=== PATIENT | female | born 1960 | race Caucasian/White ===

== ENCOUNTER 2018-05-16 05:29 | Emergency (ER) | payer SELFPAY ==
[2018-05-16] MEDS ORDERED: ADENOSINE INJ/PF 6 MG/2 ML SDV IV ONE ×3 (05:46→06:01)
[2018-05-16] MEDS ORDERED: METOPROLOL TARTRATE PF/INJ 5 MG/5 ML SDV IV ONE ×2 (05:56→06:00)
[2018-05-16] MEDS ORDERED: NORMAL SALINE 500 ML IV ONE (06:01)
[2018-05-16 06:07] LABS: ABSOLUTE EOSINOPHILS # (AUTO) 0.3 10^3/uL (0.0-0.6); ABSOLUTE MONOCYTES (AUTO) 0.7 10^3/uL (0.1-1.4); ABSOLUTE NEUT (AUTO) 5.4 10^3/uL (1.7-8.2); BASOPHILS % (AUTO) 0.2 % (0-2); EOSINOPHILS % (AUTO) 2.7 % (0-6); HEMATOCRIT 47.5 % (36.0-47.0); HEMOGLOBIN 16.1 g/dL (12.0-15.5); LYMPHOCYTES % (AUTO) 38.1 % (13-45); MEAN CORPUSCULAR HEMOGLOBIN 29.7 pg (27.0-33.4); MEAN CORPUSCULAR VOLUME 88 fl (80-97); MONOCYTES % (AUTO) 7.2 % (3-13); PLATELET COUNT 338 10^3/uL (150-450); RED BLOOD COUNT 5.43 10^6/uL (3.72-5.28); RED CELL DISTRIBUTION WIDTH 13.4 % (11.5-14.0); SEGMENTED NEUTROPHILS % (AUTO) 51.8 % (42-78); TOTAL CELLS COUNTED % (AUTO) 100 %; WHITE BLOOD COUNT 10.4 10^3/uL (4.0-10.5)
[2018-05-16] MEDS ORDERED: NITROGLYCERIN/D5W 50 MG/250 ML RTUINJ IV ONE (06:17)
[2018-05-16 06:21] LABS: ALANINE AMINOTRANSFERASE 32 U/L (9-52); ALBUMIN 4.7 g/dL (3.5-5.0); ALKALINE PHOSPHATASE 148 U/L (38-126); ANION GAP 16 (5-19); ASPARTATE AMINO TRANSFERASE 41 U/L (14-36); BILIRUBIN,DIRECT 0.3 mg/dL (0.0-0.4); BILIRUBIN,TOTAL 0.6 mg/dL (0.2-1.3); BLOOD UREA NITROGEN 21 mg/dL (7-20); CALCIUM 9.9 mg/dL (8.4-10.2); CARBON DIOXIDE 20 mmol/L (22-30); CHLORIDE 103 mmol/L (98-107); GLUCOSE 342 mg/dL (75-110); POTASSIUM 4.1 mmol/L (3.6-5.0); SODIUM 139.3 mmol/L (137-145); TOTAL PROTEIN 8.5 g/dL (6.3-8.2)
--- NOTE | 2018-05-16 06:28 | ER Document Report ---
Doctor's Note Notes: 05/16/18 06:12 Performed a
[2018-05-16] MEDS ORDERED: INSULIN REG, HUMAN 100 UNIT/ML 3 ML VIAL (PYX) SUBCUT ONE (06:31)
--- NOTE | 2018-05-16 06:50 | RADIOLOGY REPORT (SQ) ---
EXAM DESCRIPTION: CT ABDOMEN PELVIS WITHOUT THEN WITH IV CONTRAST, CT CHEST ANGIOGRAPHY WITHOUT THEN WITH IV CONTRAST COMPLETED DATE/TME: 05/16/2018 00:00 (accession [id number]), 05/16/2018 06:00 (accession [id number]) CLINICAL HISTORY: 57 years, Female, chest pain. rule out aortic disection COMPARISON: None. TECHNIQUE: Axial CT images of the chest, and pelvis were obtained after the administration of IV contrast. MPR and MIP. DLP 2565. Images stored on PACS. All CT scanners at this facility use dose modulation, iterative reconstruction, and/or weight based dosing when appropriate to reduce radiation dose to as low as reasonably achievable (ALARA). [facility]: Dose Right [facility]: CareDose [facility]: Dose Right [facility]: Teradose 4D [facility]: MindMixer LIMITATIONS: None. FINDINGS: --Chest-- Thoracic aorta: Minimal atherosclerotic calcifications. No evidence of an aneurysm or dissection. Heart: Atherosclerotic calcifications of the coronary arteries Mediastinum: No pathologic sized middle mediastinal lymphadenopathy. Tracheobronchial tree: Unremarkable. Pulmonary arteries: No evidence of a pulmonary embolism. Lungs: Lobar consolidation: There are diffuse and patchy groundglass opacities. Pleural effusion: Negative. Pneumothorax: Negative. Other: Negative. Bones: Unremarkable. --Abdomen-- Solid abdominal viscera: Liver: Unremarkable. Gallbladder: Cholelithiasis Pancreas: Unremarkable. Spleen: Unremarkable. Adrenal glands: Unremarkable. Right kidney: No hydronephrosis. Left kidney: No hydronephrosis. Urinary bladder: Unremarkable. Abdominal aorta: Unremarkable. Peritoneal: Free fluid: None. Free air: None. Other: No pathologic sized lymph nodes in the upper abdomen. Bowel: Stomach: Unremarkable. Small bowel: Unremarkable. Appendix: Unremarkable. Colon: Diverticulosis without evidence of diverticulitis Rectum: Unremarkable. Uterus: Unremarkable. Bones: Unremarkable. IMPRESSION: No evidence of an aortic dissection or aneurysm. Diffuse groundglass opacities, which may be due to a pneumonitis or pneumonia. Cholelithiasis. Diverticulosis without evidence of diverticulitis TECHNICAL DOCUMENTATION: Quality ID # 436: Final reports with documentation of one or more dose reduction techniques (e.g., Automated exposure control, adjustment of the mA and/or kV according to patient size, use of iterative reconstruction technique) copyright 2011 [employer] All Rights Reserved
--- NOTE | 2018-05-16 06:50 | RADIOLOGY REPORT (SQ) ---
EXAM DESCRIPTION: CT ABDOMEN PELVIS WITHOUT THEN WITH IV CONTRAST, CT CHEST ANGIOGRAPHY WITHOUT THEN WITH IV CONTRAST COMPLETED DATE/TME: 05/16/2018 00:00 (accession [id number]), 05/16/2018 06:00 (accession [id number]) CLINICAL HISTORY: 57 years, Female, chest pain. rule out aortic disection COMPARISON: None. TECHNIQUE: Axial CT images of the chest, and pelvis were obtained after the administration of IV contrast. MPR and MIP. DLP 2565. Images stored on PACS. All CT scanners at this facility use dose modulation, iterative reconstruction, and/or weight based dosing when appropriate to reduce radiation dose to as low as reasonably achievable (ALARA). [facility]: Dose Right [facility]: CareDose [facility]: Dose Right [facility]: Teradose 4D [facility]: [employer] LIMITATIONS: None. FINDINGS: --Chest-- Thoracic aorta: Minimal atherosclerotic calcifications. No evidence of an aneurysm or dissection. Heart: Atherosclerotic calcifications of the coronary arteries Mediastinum: No pathologic sized middle mediastinal lymphadenopathy. Tracheobronchial tree: Unremarkable. Pulmonary arteries: No evidence of a pulmonary embolism. Lungs: Lobar consolidation: There are diffuse and patchy groundglass opacities. Pleural effusion: Negative. Pneumothorax: Negative. Other: Negative. Bones: Unremarkable. --Abdomen-- Solid abdominal viscera: Liver: Unremarkable. Gallbladder: Cholelithiasis Pancreas: Unremarkable. Spleen: Unremarkable. Adrenal glands: Unremarkable. Right kidney: No hydronephrosis. Left kidney: No hydronephrosis. Urinary bladder: Unremarkable. Abdominal aorta: Unremarkable. Peritoneal: Free fluid: None. Free air: None. Other: No pathologic sized lymph nodes in the upper abdomen. Bowel: Stomach: Unremarkable. Small bowel: Unremarkable. Appendix: Unremarkable. Colon: Diverticulosis without evidence of diverticulitis Rectum: Unremarkable. Uterus: Unremarkable. Bones: Unremarkable. IMPRESSION: No evidence of an aortic dissection or aneurysm. Diffuse groundglass opacities, which may be due to a pneumonitis or pneumonia. Cholelithiasis. Diverticulosis without evidence of diverticulitis TECHNICAL DOCUMENTATION: Quality ID # 436: Final reports with documentation of one or more dose reduction techniques (e.g., Automated exposure control, adjustment of the mA and/or kV according to patient size, use of iterative reconstruction technique) copyright 2011 [employer]- All Rights Reserved
[2018-05-16] MEDS ORDERED: PANTOPRAZOLE SODIUM 40 MG VIAL IV ONE (06:53)
[2018-05-16] MEDS ORDERED: ASPIRIN 325 MG TABLET PO ONE (07:04)
[2018-05-16] MEDS ORDERED: DILTIAZEM HCL/D5W 125 MG/125 ML RTUINJ IV PRN (07:04)
[2018-05-16] MEDS ORDERED: ASPIRIN 81 MG TABLET, CHEWABLE ONE (07:14)
--- NOTE | 2018-05-16 07:14 | ER Document Report ---
ED General - General Chief Complaint: Chest Pain Stated Complaint: CHEST PAIN Time Seen by Provider: 05/16/18 06:00 Notes: Patient is a 57-year-old female who presents with complaint of severe chest pain that radiates from the chest into her back and upper neck and into her left shoulder and arm. Started around 1:30 AM. She also notes her heart was racing fast. She waited at home but it did not improve and therefore she came to the ER. Upon arrival she is unwell appearing. She is having severe chest pain. She appears a bit short of breath. She says she does have a history of hypertension and diabetes. She says used to be on medications over a year ago however decided to stop taking medications and try to correct her medical pr oblems with diet. She has not seen a doctor in over a year. She denies personal history of coronary disease. There is some family history of coronary disease. No drug use. No alcohol use. No smoking. No other complaints at this time. TRAVEL OUTSIDE OF THE [place] IN LAST 30 DAYS: No - Related Data Allergies/Adverse Reactions: Sulfa (Sulfonamide Antibiotics) Allergy (Verified 05/16/18 05:33) Past Medical History - Social History Smoking Status: Former Smoker Chew tobacco use (# tins/day): No Frequency of alcohol use: None Drug Abuse: None Family History: Reviewed & Not Pertinent Patient has suicidal ideation: No Patient has homicidal ideation: No - Past Medical History Cardiac Medical History: Reports: Hx Hypertension Endocrine Medical History: Reports: Hx Diabetes Mellitus Type 2 Renal/ Medical History: Denies: Hx Peritoneal Dialysis Review of Systems - Review of Systems Notes: My Normal Review Basic REVIEW OF SYSTEMS: CONSTITUTIONAL : Denies fever, chills, or sweats. Denies recent illness. EENT: Denies eye, ear, throat, or mouth pain or symptoms. Denies nasal or sinus congestion. CARDIOVASCULAR: Chest pain RESPIRATORY: Some dyspnea GASTROINTESTINAL: Denies abdominal pain. Denies nausea, vomiting, or diarrhea. Denies constipation. Last BM: MUSCULOSKELETAL: Denies neck or back pain or joint pain or swelling. SKIN: Denies rash or skin lesions. NEUROLOGICAL: Denies altered mental status or loss of consciousness. . ALL OTHER SYSTEMS REVIEWED AND NEGATIVE. Physical Exam - Vital signs Vitals: Resp 16 05/16/18 05:42 - Notes Notes: General Appearance: Well nourished, alert, cooperative, mild acute distress, moderate obvious discomfort. Vitals: reviewed, See vital signs table. Head: no swelling or tenderness to the head Eyes: PERRL, EOMI, Conjuctiva clear Mouth: No decreasd moisture Lungs: No wheezing, No rales, No rhonci, No accessory muscle use, good air exchange bilaterally. Heart: tachyardiac rate, Regular rythm, No murmur, no rub Abdomen: Normal BS, soft, No rigidity, No abdominal tenderness, No guarding, no rebound, no abdominal masses, no organomegaly Extremities: strength 5/5 in all extremities, good pulses in all extremities, no swelling or tenderness in the extremities, no edema. Skin: warm, dry, appropriate color, no rash Neuro: speech clear, oriented x 3, normal affect, responds appropriately to questions. Course - Re-evaluation Re-evalutation: 05/16/18 07:07 The patient arrived she was tachycardic and hypertensive. Systolic blood pressure was over 200. Heart rate was in the 150s to low 160s. She had chest pain rating to her back and into her neck and into her left shoulder. Peripheral pulses were equal but was concerned for possibility of dissection. I cannot tell exactly what rhythm she was in. On the EKG it looks like it probably was sinus tach as there may be some P waves buried within the T waves; however, this was not clear. I therefore gave her round of adenosine which slo wed down her rate enough for me to see that she was indeed in sinus tach. I gave the patient 5 mg Lopressor IV and I then took the patient immediately over to CT scan to rule out dissection. CTA did not show evidence of dissection as I reviewed the images as they were coming across on the monitor. Patient however developed flash pulmonary edema during the CT scan that her chest pain worsened. Immediately brought back to the room and started on high-dose nitro drip at 100 mcgs a minute. This quickly relieved the patient's chest pain and help with her edema. We did have a nonrebreather mask on her until BiPAP to be started. Once BiPAP was placed on her her breathing completely improved. Blood pressure is improved on nitro drip. We are now able to titrate the nitro drip down. She st ill has tachycardia. Her heart rate initially went to the 120s with the Lopressor but it is back into the 140s. I have ordered Cardizem drip as I suspect that she may be having underlying cardiac ischemia or PA as her troponin is elevated. I want to get her heart rate under better control to help reduce the amount of strain this could put on her. We will start a Cardizem drip. I have ordered aspirin. I will call for transfer as I suspect the patient may have a non-STEMI with significant cardiac strain. 05/16/18 07:[address] Keyes, sales service rep at [facility]. He is except the patient for transfer. Will place patient on Lovenox. She is Osmany received aspirin. We will continue the Cardizem drip to try to help control her heart rate. Patient currently is pain-free and says she feels much improved. She says she still has just a slight shortness of breath but it is much improved comparison to earlier. Dictation of this chart was performed using voice recognition software; therefore, there may be some unintended grammatical errors. 05/16/18 07:48 - Vital Signs Vital signs: Temp Pulse Resp BP Pulse Ox 97.9 F 15 132/98 H 97 05/16/18 06:57 05/16/18 06:57 05/16/18 06:57 05/16/18 06:57 - Laboratory Result Diagrams: 05/16/18 05:50 05/16/18 05:50 Laboratory results interpreted by me: 05/16/18 05/16/18 05/16/18 05:43 05:50 05:50 RBC 5.43 H Hgb 16.1 H Hct 47.5 H Carbon Dioxide 20 L BUN 21 H Glucose 342 H POC Glucose 324 H AST 41 H Alkaline Phosphatase 148 H Total Protein 8.5 H Critical Care Note - Critical Care Note Total time excluding time spent on procedures (mins): 45 Comments: Critical care time for the patient including time spent in procedures appro ximately 45 minutes due to evaluations, management of hypertensive emergency, management of severe chest pain with distress, management of an STEMI. Discharge - Discharge Clinical Impression: Tachycardia, Flash pulmonary edema, NSTEMI (non-ST elevated myocardial infarction) Chest pain Qualifiers: Chest pain type: unspecified Qualified Code(s): R07.9 - Chest pain, unspecified Condition: Stable Disposition: [facility]
[2018-05-16] MEDS ORDERED: ASPIRIN 81 MG TABLET, CHEWABLE PO ONE (07:18)
--- NOTE | 2018-05-16 07:20 | RADIOLOGY REPORT (SQ) ---
EXAM DESCRIPTION: XR CHEST 1 VIEW COMPLETED DATE/TME: 05/16/2018 06:47 CLINICAL HISTORY: 57 years Female, dyspnea COMPARISON: 08/06/13 NUMBER OF VIEWS/TECHNIQUE: 1/AP FINDINGS: Adequate lung volume, mixed interstitial and airspace opacity, normal cardiac silhouette, and intact bony thorax. IMPRESSION: Mild mixed interstitial and airpace opacities. Differential diagnosis includes pulmonary edema, multifocal pneumonia, and chronic interstitial lung disease.
[2018-05-16] MEDS ORDERED: ENOXAPARIN SODIUM INJ 120 MG/0.8 ML DISP.SYRIN SUBCUT SCH (08:00)
--- NOTE | 2018-05-16 08:32 | EKG REPORT ---
SEVERITY:- ABNORMAL ECG - SINUS TACHYCARDIA FIRST DEGREE AV BLOCK JOSIE, CONSIDER BIATRIAL ABNORMALITIES CONSIDER ANTEROSEPTAL INFARCT ST DEPRESSION, PROBABLY RATE RELATED PROLONGED QT INTERVAL : Confirmed by: Doe Owen MD 16-May-2018 08:30:55
[2018-05-16 08:43] VITALS: BP 136/76
== END 2018-05-16 09:10 | disposition short-term general hospital (02) ==
LOC: ER 05:29
DX: I21.4 Non-ST elevation (NSTEMI) myocardial infarction (principal); J81.1 Chronic pulmonary edema; R00.0 Tachycardia, unspecified; R07.9 Chest pain, unspecified; M25.512 Pain in left shoulder; M54.9 Dorsalgia, unspecified; M54.2 Cervicalgia; M79.602 Pain in left arm; I10 Essential (primary) hypertension; E11.9 Type 2 diabetes mellitus without complications; Z87.891 Personal history of nicotine dependence
CPT/HCPCS: 93005; 99291; 96372; 96375; 96365; 96366; 96368; 36415; 82962; 83735; 85025; 80053; 84484; 83880; 71045; 71275; 74174; 93010; J1650; J3490 ×3; S0164; J1815; J7040; J0153

== ENCOUNTER 2018-06-08 16:09 | Emergency (ER) | payer SELFPAY ==
[2018-06-08] MEDS ORDERED: FENTANYL CITRATE INJ/PF 100 MCG/2 ML AMPUL ONE (16:17)
[2018-06-08] MEDS ORDERED: PROPOFOL 1,000 MG/100 ML INFUS..BTL IV ONE ×2 (16:17→20:03)
[2018-06-08] MEDS ORDERED: FUROSEMIDE INJ/PF 40 MG/4 ML SDV IV ONE (16:22)
[2018-06-08] MEDS ORDERED: FENTANYL CITRATE INJ/PF 100 MCG/2 ML AMPUL IV ONE (16:22)
[2018-06-08 16:49] LABS: ABSOLUTE BASOPHILS # (AUTO) 0.1 10^3/uL (0.0-0.2); ABSOLUTE EOSINOPHILS # (AUTO) 0.7 10^3/uL (0.0-0.6); ABSOLUTE LYMPHOCYTES (AUTO) 1.6 10^3/uL (0.5-4.7); ABSOLUTE MONOCYTES (AUTO) 0.4 10^3/uL (0.1-1.4); ABSOLUTE NEUT (AUTO) 4.7 10^3/uL (1.7-8.2); BASOPHILS % (AUTO) 0.8 % (0-2); EOSINOPHILS % (AUTO) 9.5 % (0-6); HEMATOCRIT 31.1 % (36.0-47.0); HEMOGLOBIN 9.9 g/dL (12.0-15.5); LYMPHOCYTES % (AUTO) 21.4 % (13-45); MEAN CORPUSCULAR HEMOGLOBIN 28.9 pg (27.0-33.4); MEAN CORPUSCULAR VOLUME 91 fl (80-97); MONOCYTES % (AUTO) 5.2 % (3-13); PLATELET COUNT 533 10^3/uL (150-450); RED BLOOD COUNT 3.44 10^6/uL (3.72-5.28); RED CELL DISTRIBUTION WIDTH 16.1 % (11.5-14.0); SEGMENTED NEUTROPHILS % (AUTO) 63.1 % (42-78); TOTAL CELLS COUNTED % (AUTO) 100 %; WHITE BLOOD COUNT 7.5 10^3/uL (4.0-10.5)
[2018-06-08 16:54] LABS: INTERNATIONAL RATION (INR) 1.09; PROTHROMBIN TIME 14.7 SEC (11.4-15.4)
[2018-06-08 17:07] LABS: ARTERIAL BLOOD BASE EXCESS -0.2 mmol/L; ARTERIAL BLOOD H2CO3 1.71 mmol/L (1.05-1.35); ARTERIAL BLOOD PCO2 56.9 mmHg (35-45); ARTERIAL BLOOD PH 7.29 (7.35-7.45); ARTERIAL BLOOD TOTAL CO2 28.7 mmol/L (21-25)
[2018-06-08 17:09] LABS: ALANINE AMINOTRANSFERASE 23 U/L (9-52); ALBUMIN 3.3 g/dL (3.5-5.0); ALKALINE PHOSPHATASE 136 U/L (38-126); ANION GAP 14 (5-19); ASPARTATE AMINO TRANSFERASE 18 U/L (14-36); BILIRUBIN,DIRECT 0.3 mg/dL (0.0-0.4); BILIRUBIN,TOTAL 0.4 mg/dL (0.2-1.3); BLOOD UREA NITROGEN 15 mg/dL (7-20); CALCIUM 9.2 mg/dL (8.4-10.2); CARBON DIOXIDE 24 mmol/L (22-30); CHLORIDE 103 mmol/L (98-107); GLUCOSE 214 mg/dL (75-110); POTASSIUM 4.8 mmol/L (3.6-5.0); SODIUM 141.1 mmol/L (137-145); TOTAL PROTEIN 6.8 g/dL (6.3-8.2)
[2018-06-08 17:12] LABS: ARTERIAL BLOOD FIO2 70%
[2018-06-08] MEDS ORDERED: DEXTROSE 5%-WATER 1000 ML 1,000 ML with SODIUM BICARBONATE 100 MEQ IV PRN ×2 (17:12)
[2018-06-08] MEDS ORDERED: SODIUM BICARBONATE 8.4% INJ 50 MEQ/50 ML DISP.SYRIN ONE (17:26)
--- NOTE | 2018-06-08 17:27 | ER Document Report ---
ED General - General Chief Complaint: Respiratory Distress Stated Complaint: RESPIRATORY DISTRESS Time Seen by Provider: 06/08/18 16:21 Primary Care Provider: RICKY DAVILA PA-C [Primary Care Provider] - Follow up as needed Mode of Arrival: Ambulatory Information source: Relative, Emergency Med Personnel, [facility] Records Cannot obtain history due to: Intubated Notes: 57-year-old female presents via EMS after an episode of respiratory distress which required intubation in the field. EMS reports that the patient was going to get a CTA to rule out a pulmonary embolism when she became acutely short of breath, did not tolerate the BiPAP and had an increased work of breathing. Upon arrival to the department the patient has a 708 ET tube placed and bilateral breath sounds. Chest x-ray was obtained which showed the ET tube did require advancement. 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 TRAVEL OUTSIDE OF THE [place] IN LAST 30 DAYS: No - HPI Onset: Just prior to arrival Onset/Duration: Sudden Similar symptoms previously: Yes Recently seen / treated by doctor: Yes - Related Data Allergies/Adverse Reactions: Sulfa (Sulfonamide Antibiotics) Allergy (Verified 05/16/18 05:33) Past Medical History - General Information source: Relative, Emergency Med Personnel, [facility] Records - Social History Smoking Status: Former Smoker Frequency of alcohol use: None Drug Abuse: None Lives with: Family Family History: Reviewed & Not Pertinent - Past Medical History Cardiac Medical History: Reports: Hx Hypertension Endocrine Medical History: Reports: Hx Diabetes Mellitus Type 2 Renal/ Medical History: Denies: Hx Peritoneal Dialysis Review of Systems - Review of Systems -: Yes ROS unobtainable due to patient's medical condition Physical Exam - Vital signs Vitals: Temp Pulse Resp BP Pulse Ox 98.2 F 128 H 12 126/83 H 100 06/08/18 16:10 06/08/18 16:10 06/08/18 16:10 06/08/18 16:10 06/08/18 16:10 - Notes Notes: PHYSICAL EXAMINATION: GENERAL: Intubated, being bagged. HEAD: Atraumatic, normocephalic. EYES: Pupils equal round and reactive to light, conjunctiva are normal. ENT: Nares patent, oropharynx clear without exudates. Moist mucous membranes. NECK: Normal range of motion, supple without lymphadenopathy LUNGS: Intubated, bilateral breath sounds. HEART: Tachycardic, regular rhythm without murmurs ABDOMEN: Soft, nontender, nondistended abdomen. No guarding, no rebound. No masses appreciated. Female : deferred Musculoskeletal: Normal range of motion, no pitting or edema. No cyanosis. NEUROLOGICAL: 3T PSYCH: Normal mood, normal affect. SKIN: Diffuse areas of ecchymosis along the medial aspects of the lower extremities bilaterally Course - Re-evaluation Re-evalutation: Microbiology 06/08/18 17:44 Urine Culture - Preliminary Catheterized Urine Gram Negative Rods Laboratory 06/08/18 06/08/18 06/08/18 16:20 16:20 16:20 WBC 7.5 RBC 3.44 L Hgb 9.9 L Hct 31.1 L MCV 91 MCH 28.9 MCHC 32.0 RDW 16.1 H Plt Count 533 H Seg Neutrophils % 63.1 Lymphocytes % 21.4 Monocytes % 5.2 Eosinophils % 9.5 H Basophils % 0.8 Absolute Neutrophils 4.7 Absolute Lymphocytes 1.6 Absolute Monocytes 0.4 Absolute Eosinophils 0.7 H Absolute Basophils 0.1 PT 14.7 INR 1.09 Carbonic Acid HCO3/H2CO3 Ratio ABG pH ABG pCO2 ABG pO2 ABG HCO3 ABG Total CO2 ABG O2 Saturation ABG Base Excess FiO2 Sodium 141.1 Potassium 4.8 Chloride 103 Carbon Dioxide 24 Anion Gap 14 BUN 15 Creatinine 0.94 Est GFR ( Amer) > 60 Est GFR (Non-Af Amer) > 60 Glucose 214 H POC Glucose Lactic Acid Calcium 9.2 Magnesium Total Bilirubin 0.4 Direct Bilirubin 0.3 Neonat Total Bilirubin Not Reportable Neonat Direct Bilirubin Not Reportable Neonat Indirect Bili Not Reportable AST 18 ALT 23 Alkaline Phosphatase 136 H Creatine Kinase CK-MB (CK-2) Troponin I NT-Pro-B Natriuret Pep Total Protein 6.8 Albumin 3.3 L Urine Color Urine Appearance Urine pH Ur Specific [place] Urine Protein Urine Glucose (UA) Urine Ketones Urine Blood Urine Nitrite Urine Bilirubin Urine Urobilinogen Ur Leukocyte Esterase Urine WBC (Auto) Urine RBC (Auto) U Hyaline Cast (Auto) Urine Bacteria (Auto) Urine WBC Clumps Squamous Epi Cells Auto Urine Mucus (Auto) Urine Ascorbic Acid 06/08/18 06/08/18 06/08/18 16:20 16:20 16:20 WBC RBC Hgb Hct MCV MCH MCHC RDW Plt Count Seg Neutrophils % Lymphocytes % Monocytes % Eosinophils % Basophils % Absolute Neutrophils Absolute Lymphocytes Absolute Monocytes Absolute Eosinophils Absolute Basophils PT INR Carbonic Acid HCO3/H2CO3 Ratio ABG pH ABG pCO2 ABG pO2 ABG HCO3 ABG Total CO2 ABG O2 Saturation ABG Base Excess FiO2 Sodium Potassium Chloride Carbon Dioxide Anion Gap BUN Creatinine Est GFR ( Amer) Est GFR (Non-Af Amer) Glucose POC Glucose Lactic Acid 2.3 H Calcium Magnesium 2.2 Total Bilirubin Direct Bilirubin Neonat Total Bilirubin Neonat Direct Bilirubin Neonat Indirect Bili AST ALT Alkaline Phosphatase Creatine Kinase 31 CK-MB (CK-2) Troponin I NT-Pro-B Natriuret Pep 2370 H Total Protein Albumin Urine Color Urine Appearance Urine pH Ur Specific [place] Urine Protein Urine Glucose (UA) Urine Ketones Urine Blood Urine Nitrite Urine Bilirubin Urine Urobilinogen Ur Leukocyte Esterase Urine WBC (Auto) Urine RBC (Auto) U Hyaline Cast (Auto) Urine Bacteria (Auto) Urine WBC Clumps Squamous Epi Cells Auto Urine Mucus (Auto) Urine Ascorbic Acid 06/08/18 06/08/18 06/08/18 16:20 16:44 16:50 WBC RBC Hgb Hct MCV MCH MCHC RDW Plt Count Seg Neutrophils % Lymphocytes % Monocytes % Eosinophils % Basophils % Absolute Neutrophils Absolute Lymphocytes Absolute Monocytes Absolute Eosinophils Absolute Basophils PT INR Carbonic Acid 1.71 H HCO3/H2CO3 Ratio 15:1 ABG pH 7.29 L ABG pCO2 56.9 H ABG pO2 103.0 H ABG HCO3 27.0 H ABG Total CO2 28.7 H ABG O2 Saturation 97.0 ABG Base Excess -0.2 FiO2 70% Sodium Potassium Chloride Carbon Dioxide Anion Gap BUN Creatinine Est GFR ( Amer) Est GFR (Non-Af Amer) Glucose POC Glucose 182 H Lactic Acid Calcium Magnesium Total Bilirubin Direct Bilirubin Neonat Total Bilirubin Neonat Direct Bilirubin Neonat Indirect Bili AST ALT Alkaline Phosphatase Creatine Kinase CK-MB (CK-2) < 0.22 Troponin I < 0.012 NT-Pro-B Natriuret Pep Total Protein Albumin Urine Color Urine Appearance Urine pH Ur Specific [place] Urine Protein Urine Glucose (UA) Urine Ketones Urine Blood Urine Nitrite Urine Bilirubin Urine Urobilinogen Ur Leukocyte Esterase Urine WBC (Auto) Urine RBC (Auto) U Hyaline Cast (Auto) Urine Bacteria (Auto) Urine WBC Clumps Squamous Epi Cells Auto Urine Mucus (Auto) Urine Ascorbic Acid 06/08/18 17:44 WBC RBC Hgb Hct MCV MCH MCHC RDW Plt Count Seg Neutrophils % Lymphocytes % Monocytes % Eosinophils % Basophils % Absolute Neutrophils Absolute Lymphocytes Absolute Monocytes Absolute Eosinophils Absolute Basophils PT INR Carbonic Acid HCO3/H2CO3 Ratio ABG pH ABG pCO2 ABG pO2 ABG HCO3 ABG Total CO2 ABG O2 Saturation ABG Base Excess FiO2 Sodium Potassium Chloride Carbon Dioxide Anion Gap BUN Creatinine Est GFR ( Amer) Est GFR (Non-Af Amer) Glucose POC Glucose Lactic Acid Calcium Magnesium Total Bilirubin Direct Bilirubin Neonat Total Bilirubin Neonat Direct Bilirubin Neonat Indirect Bili AST ALT Alkaline Phosphatase Creatine Kinase CK-MB (CK-2) Troponin I NT-Pro-B Natriuret Pep Total Protein Albumin Urine Color YELLOW Urine Appearance CLOUDY Urine pH 6.0 Ur Specific [place] 1.010 Urine Protein 100 H Urine Glucose (UA) NEGATIVE Urine Ketones NEGATIVE Urine Blood NEGATIVE Urine Nitrite NEGATIVE Urine Bilirubin NEGATIVE Urine Urobilinogen NEGATIVE Ur Leukocyte Esterase MODERATE H Urine WBC (Auto) 91 Urine RBC (Auto) 2 U Hyaline Cast (Auto) 5 Urine Bacteria (Auto) TRACE Urine WBC Clumps MANY Squamous Epi Cells Auto 2 Urine Mucus (Auto) OCC Urine Ascorbic Acid 20 H Chest X-Ray 06/08/18 16:21 IMPRESSION: Cardiomegaly with pulmonary edema. Life lines as described. Temp Pulse Resp BP Pulse Ox 99.7 F 128 H 12 106/71 100 06/08/18 19:46 06/08/18 16:10 06/08/18 19:46 06/08/18 19:46 06/08/18 19:46 06/08/18 17:25 Patient arrived via EMS intubated with a 7.0 ET tube. Breath sounds auscultated and greater on the right than left. Portable chest x-ray showed that the ET tube was at least 7 cm above the jef. Tube was advanced and repeat chest x- ray shows appropriate tube placement. EMS reported that the patient was at [facility] for a CTA due to shortness of breath, tachycardia when she had an acute onset of respiratory distress. They did attempt to place CPAP but the patient did not tolerated and was given ketamine and rocuronium for RSI. Bedside ultrasound was performed and showed significant B-lines indicative of interstitial edema. Heart was reviewed and showed no evidence of tamponade, pericardial effusion. 06/08/18 17:27 Patient was given fentanyl and placed on a propofol drip. Lasix 40 mg IV was administered. Lovenox was administered. Family now at the bedside and states that patient has a history of flash pulmonary edema. She did recently undergo a triple bypass at [facility] with Dr. Mckeon and patient expressed desire to family members that she wanted to return there. 06/08/18 17:29 EKG was obtained which showed the patient to be in sinus tachycardia at a rate of 125. QTC was 543 and sodium bicarb was administered. [facility] cardiac connections was contacted for transfer. Patient did become hypotensive during her ED course. Levophed was then added to the sedation of propofol and every hour fentanyl. CTA was ordered but because of lack of respiratory therapy coverage it was delayed and incompleted prior to of the transfer team. Patient was treated prophylactically for a PE with weight-based Lovenox. Patient did have stable vitals upon transfer. Patient was transferred in stable condition to [facility] 06/09/18 12:03 - Vital Signs Vital signs: Temp Pulse Resp BP Pulse Ox 99.7 F 128 H 12 106/71 100 06/08/18 19:46 06/08/18 16:10 06/08/18 19:46 06/08/18 19:46 06/08/18 19:46 - Laboratory Result Diagrams: 06/08/18 16:20 06/08/18 16:20 Laboratory results interpreted by me: 06/08/18 06/08/18 06/08/18 16:20 16:20 16:20 RBC 3.44 L Hgb 9.9 L Hct 31.1 L RDW 16.1 H Plt Count 533 H Eosinophils % 9.5 H Absolute Eosinophils 0.7 H Carbonic Acid ABG pH ABG pCO2 ABG pO2 ABG HCO3 ABG Total CO2 Glucose 214 H POC Glucose Lactic Acid 2.3 H Alkaline Phosphatase 136 H NT-Pro-B Natriuret Pep Albumin 3.3 L Urine Protein Ur Leukocyte Esterase Urine Ascorbic Acid 06/08/18 06/08/18 06/08/18 16:20 16:44 16:50 RBC Hgb Hct RDW Plt Count Eosinophils % Absolute Eosinophils Carbonic Acid 1.71 H ABG pH 7.29 L ABG pCO2 56.9 H ABG pO2 103.0 H ABG HCO3 27.0 H ABG Total CO2 28.7 H Glucose POC Glucose 182 H Lactic Acid Alkaline Phosphatase NT-Pro-B Natriuret Pep 2370 H Albumin Urine Protein Ur Leukocyte Esterase Urine Ascorbic Acid 06/08/18 17:44 RBC Hgb Hct RDW Plt Count Eosinophils % Absolute Eosinophils Carbonic Acid ABG pH ABG pCO2 ABG pO2 ABG HCO3 ABG Total CO2 Glucose POC Glucose Lactic Acid Alkaline Phosphatase NT-Pro-B Natriuret Pep Albumin Urine Protein 100 H Ur Leukocyte Esterase MODERATE H Urine Ascorbic Acid 20 H - Diagnostic Test Radiology reviewed: Image reviewed, Reports reviewed Critical Care Note - Critical Care Note Total time excluding time spent on procedures (mins): 45 - Minutes of critical care time spent in direct contact evaluating and reevaluating the patient, treating symptoms, reviewing labs and studies and speaking with family and consultants excluding any procedures Discharge - Discharge Clinical Impression: Respiratory failure Qualifiers: Chronicity: unspecified Respiratory failure complication: hypoxia Qualified Code(s): J96.91 - Respiratory failure, unspecified with hypoxia Pulmonary edema Qualifiers: Chronicity: acute Qualified Code(s): J81.0 - Acute pulmonary edema Acute exacerbation of congestive heart failure Qualifiers: Heart failure type: unspecified Qualified Code(s): I50.9 - Heart failure, unspecified Condition: Critical Disposition: [facility] Referrals: RICKY DAVILA PA-C [Primary Care Provider] - Follow up as needed
[2018-06-08] MEDS ORDERED: ENOXAPARIN SODIUM INJ 120 MG/0.8 ML DISP.SYRIN SUBCUT SCH (17:30)
--- NOTE | 2018-06-08 17:42 | RADIOLOGY REPORT (SQ) ---
EXAM DESCRIPTION: CHEST SINGLE VIEW COMPLETED DATE/TIME: 06/08/2018 4:52 pm REASON FOR STUDY: Respiratory failure COMPARISON: None. EXAM PARAMETERS: NUMBER OF VIEWS: One view. TECHNIQUE: Single frontal radiographic view of the chest acquired. RADIATION DOSE: NA LIMITATIONS: None. FINDINGS: LUNGS AND PLEURA: Patchy, slightly asymmetric pulmonary edema. MEDIASTINUM AND HILAR STRUCTURES: No masses. Contour normal. HEART AND VASCULAR STRUCTURES: Heart size is borderline. BONES: No acute findings. HARDWARE: Sternotomy wires. An endotracheal tube terminates 4 cm above the jef. An NG tube exten ds to the stomach. OTHER: No other significant finding. IMPRESSION: Cardiomegaly with pulmonary edema. Life lines as described. TECHNICAL DOCUMENTATION: JOB ID: [id number] 1998 [employer]- All Rights Reserved Reading location - IP/workstation name: [email or web address]
[2018-06-08] MEDS: FENTANYL CITRATE INJ/PF 100 MCG/2 ML AMPUL IV PRN ×2 (17:45→19:31)
[2018-06-08] MEDS ORDERED: DEXTROSE 5%-WATER 1000 ML 1,000 ML with SODIUM BICARBONATE 50 MEQ IV PRN ×2 (17:52)
[2018-06-08 18:10] LABS: APPEARANCE,URINE CLOUDY; BILIRUBIN,URINE NEGATIVE (NEGATIVE); COLOR,URINE YELLOW; GLUCOSE, URINE NEGATIVE (NEGATIVE); KETONES,URINE NEGATIVE (NEGATIVE); LEUKOCYTE ESTERASE,URINE MODERATE (NEGATIVE); NITRITE,URINE NEGATIVE (NEGATIVE); PROTEIN,URINE 100 mg/dL (NEGATIVE); UROBILINOGEN,URINE NEGATIVE mg/dL (<2.0)
[2018-06-08 18:15] LABS: CREATINE KINASE 31 U/L (30-135)
[2018-06-08] MEDS ORDERED: METOPROLOL TARTRATE PF/INJ 5 MG/5 ML SDV IV ONE (18:29)
[2018-06-08 18:32] LABS: CREATINE KINASE MB < 0.22 ng/mL (<4.55); TROPONIN I < 0.012 ng/mL
[2018-06-08] MEDS ORDERED: SODIUM BICARBONATE 8.4% INJ 50 MEQ/50 ML DISP.SYRIN IV ONE (18:32)
[2018-06-08] MEDS ORDERED: NOREPINEPHRINE BITARTRATE INJ/PF 4 MG/4 ML SDV IV ONE (18:48)
[2018-06-08] MEDS ORDERED: DEXTROSE 5%-WATER 250 ML with NOREPINEPHRINE BITARTRATE 4 MG IV PRN ×2 (18:53)
[2018-06-08] MEDS ORDERED: CEFTRIAXONE 1 GM/D5W RTU 50 ML IV ONE (19:02)
[2018-06-08] MEDS ORDERED: CEFTRIAXONE 1 GM/D5W RTU 1 GM/50 ML RTUPB IV ONE ×2 (19:30→19:43)
[2018-06-08 20:10] VITALS: BP 106/71
--- NOTE | 2018-06-08 23:59 | EKG REPORT ---
SEVERITY:- ABNORMAL ECG - SINUS TACHYCARDIA ABNORMAL T, CONSIDER ISCHEMIA, DIFFUSE LEADS PROLONGED QT INTERVAL : Confirmed by: Patricia Pickens 08-Jun-2018 23:59:09
== END 2018-06-08 20:30 | disposition short-term general hospital (02) ==
LOC: ER 16:09
DX: J96.91 Respiratory failure, unspecified with hypoxia (principal); J81.0 Acute pulmonary edema; I50.9 Heart failure, unspecified; I11.0 Hypertensive heart disease with heart failure; E11.9 Type 2 diabetes mellitus without complications; Z88.2 Allergy status to sulfonamides
CPT/HCPCS: 93005; 99291; 96372; 96375; 96365; 96368; 36415; 87086; 87040; 82553; 82962; 82803; 82550; 83735; 85025; 85610; 87077; 87088; 80053; 81001; 84484; 87186; 83605; 83880; 71045; 94660; 93010; J3010; J1940; J2704; J1650; J3490 ×2; J0696